=== PATIENT | female | born 1950 | race Caucasian/White ===

== ENCOUNTER 2020-07-08 16:26 | Emergency (ER) | payer MEDICARE, MEDICAID, SELFPAY ==
--- NOTE | ~2020-07-08 | XR_ITS ---
EXAMINATION: LEFT TIB-FIB, LEFT ANKLE, LEFT FOOT CLINICAL INFORMATION: Leg redness with question of osteomyelitis COMPARISON: None TECHNIQUE: 2 views tib-fib, 2 views ankle, 3 views foot FINDINGS: Some degenerative changes are present in the knee joint. In the proximal tibia laterally, there is a rather large area of which most likely represents osteopenia, but because of the history of because it is somewhat unusual MRI is recommended for further evaluation. The tibia and fibula otherwise appear normal. The ankle joint appears normal. Mild degenerative changes present at the DIP joints. There is some mild lateral subluxation at the PIP joint of the fifth toe. No fractures or bony destructive lesions are seen. XR/XR foot LT 2V IMPRESSION: Mild degenerative changes in the knee. Abnormal area of lucency seen in the proximal tibia as described above. MRI is recommended for further evaluation.
--- NOTE | ~2020-07-08 | XR_ITS ---
EXAMINATION: LEFT TIB-FIB, LEFT ANKLE, LEFT FOOT CLINICAL INFORMATION: Leg redness with question of osteomyelitis COMPARISON: None TECHNIQUE: 2 views tib-fib, 2 views ankle, 3 views foot FINDINGS: Some degenerative changes are present in the knee joint. In the proximal tibia laterally, there is a rather large area of which most likely represents osteopenia, but because of the history of because it is somewhat unusual MRI is recommended for further evaluation. The tibia and fibula otherwise appear normal. The ankle joint appears normal. Mild degenerative changes present at the DIP joints. There is some mild lateral subluxation at the PIP joint of the fifth toe. No fractures or bony destructive lesions are seen. XR/XR tibia fibula LT 2V IMPRESSION: Mild degenerative changes in the knee. Abnormal area of lucency seen in the proximal tibia as described above. MRI is recommended for further evaluation.
--- NOTE | ~2020-07-08 | US_ITS ---
EXAMINATION: US VENOUS ULTRASOUND WITH DOPPLER LOWER EXTREMITY, BILATERAL CLINICAL INFORMATION: Swelling. Edema COMPARISON: Doppler ultrasound left lower extremity 08/28/2018. TECHNIQUE: Ultrasound of the deep veins is performed from the hip to the calf with compression sonography and color and pulse Doppler assessment. Spectral analysis with color-flow imaging is performed. FINDINGS: RIGHT: There is normal venous compression and respiratory variation and augmented flow. The visualized common femoral vein, superficial femoral vein, profunda femoral vein, popliteal vein, and the trifurcation region shows no evidence of deep venous thrombosis. There is no significant popliteal fossa cyst. LEFT: There is normal venous compression and respiratory variation and augmented flow. The visualized common femoral vein, superficial femoral vein, profunda femoral vein, popliteal vein, and the trifurcation region shows no evidence of deep venous thrombosis. There is no significant popliteal fossa cyst. If the patient's symptoms persist, followup ultrasound in 5 days 7 days might be of value to exclude proximal propagation from a non-visualized calf vein. US/US venous duplex LE BI IMPRESSION: No DVT demonstrated in the bilateral lower extremity.
--- NOTE | ~2020-07-08 | XR_ITS ---
EXAMINATION: LEFT TIB-FIB, LEFT ANKLE, LEFT FOOT CLINICAL INFORMATION: Leg redness with question of osteomyelitis COMPARISON: None TECHNIQUE: 2 views tib-fib, 2 views ankle, 3 views foot FINDINGS: Some degenerative changes are present in the knee joint. In the proximal tibia laterally, there is a rather large area of which most likely represents osteopenia, but because of the history of because it is somewhat unusual MRI is recommended for further evaluation. The tibia and fibula otherwise appear normal. The ankle joint appears normal. Mild degenerative changes present at the DIP joints. There is some mild lateral subluxation at the PIP joint of the fifth toe. No fractures or bony destructive lesions are seen. XR/XR ankle LT min 3V IMPRESSION: Mild degenerative changes in the knee. Abnormal area of lucency seen in the proximal tibia as described above. MRI is recommended for further evaluation.
[2020-07-08 20:04] VITALS: BP 117/48; PULSE 79; RESP 18; TEMP 36.6; O2SAT 98; BMI 18.1
--- NOTE | 2020-07-08 20:54 | ECG_ITS ---
Test Reason : BILAT LOW LEG SWELLI Blood Pressure : / mmHG Vent. Rate : 076 BPM Atrial Rate : 076 BPM P-R Int : 154 ms QRS Dur : 060 ms QT Int : 362 ms P-R-T Axes : 056 077 062 degrees QTc Int : 407 ms Normal sinus rhythm Junctional ST depression, probably abnormal Abnormal ECG When compared with ECG of 23-AUG-2018 12:07, No significant change was found Referred By: Roberto Fernando Electronically Signed By:Reji Gamble
--- NOTE | 2020-07-08 21:06 | ED_ITS ---
HPI - Extremity Problem General Chief complaint: Extremity Problem Stated complaint: CELLULITIS? Time Seen by Provider: 07/08/20 21:11 Source: patient Mode of arrival: ambulatory Limitations: no limitations History of Present Illness HPI Narrative: Patient presents to the ED for evaluation of lower extremities. Patient states swelling of bilateral lower extremities with left leg slightly more swollen than right with redness for 1 month. Patient denies any chest pain or shortness of breath. Patient was sent by PCP to make sure this is no possibility of blood clot. Related Data Previous Rx's Medication Instructions Recorded cephalexin 500 mg PO QID #28 cap 07/09/20 doxycycline hyclate 100 mg PO BID #14 cap 07/09/20 Allergies Allergy/AdvReac Type Severity Reaction Status Date / Time shellfish derived Allergy Intermediate SWELLING Verified 07/08/20 20:54 [SHELLFISH DERIVED] hazelnut Allergy Abdominal Verified 07/08/20 20:02 Pain pecans Allergy Unknown Abdominal Uncoded 07/08/20 20:02 Pain walnuts Allergy Unknown Abdominal Uncoded 07/08/20 20:02 Pain Review of Systems Review of Systems: Yes all other systems are reviewed and are negative Constitutional: Constitutional: Reports as per HPI and Reports no additional constitutional complaints Eyes: Eyes: Reports as per HPI and Reports no additional eye complaints ENT: Reports system reviewed and no additional complaints, except as documented and Reports as per HPI Cardiovascular: Cardiovascular: Reports as per HPI and Reports no additional cardiovascular complaints Respiratory: Respiratory: Reports as per HPI and Reports no additional respiratory complaints Gastrointestinal: Gastrointestinal: Reports as per HPI and Reports no additional gastrointestinal complaints Genitourinary: Genitourinary: Reports no additional female genitourinary complaints and Reports as per HPI Musculoskeletal: Musculoskeletal: Reports no additional musculoskeletal complaints and Reports as per HPI Comments: Bilateral lower extremity swelling. Left leg redness Neurologic: Reports system reviewed and no additional complaints, except as documented and Reports as per HPI Psychiatric: Psychiatric: Reports no additional psychiatric complaints and Reports as per HPI PMF Past Medical History Medical History (Updated 07/09/20 @ 00:51 by ADNE Guzman) Patient denies medical problems Social History Social History Smoking Status: Never smoker Use of substances other than those prescribed or required for medical reasons: No Advance Directives: No Advance Directives Information Provided: No Physical Exam Vital Signs: Vital Signs: Last Vital Signs Temp 98.2 F 07/08/20 22:46 Pulse 79 07/09/20 00:00 Resp 18 07/09/20 00:00 BP 128/64 07/09/20 00:00 Pulse Ox 99 07/09/20 00:00 Body Mass Index 18.1 Const: General: cooperative, healthy appearing, comfortable, no acute distress, well developed, alert and awake Orientation/consciousness: patient oriented x3 HENMT: Head: Yes normal to inspection, Yes No palpable skull fracture present, Yes normocephalic, Yes atraumatic, No Bautista's sign, No contusion, No cranial bruits, No hematoma, No laceration, No occipital foramen tenderness, No palpable skull fracture, No raccoon eyes, No scalp lesion, No scalp tenderness and No Temporal artery tenderness present Eyes: General: appearance normal, both eyes and all related structures Neck: Neck: Yes normal visual inspection, Yes full ROM, Yes no lymphadenopathy, Yes no meningeal signs, Yes trachea midline, Yes supple and No tender Chest: Chest palpation & inspection: normal inspection of the chest and normal palpation of entire chest wall Resp: Effort & Inspection: normal respiratory effort and able to speak in complete sentences Auscultation: clear to auscultation bilaterally Cardio: Jugular venous distension: no JVD Heart sounds: S1 normal heart sound present and S2 normal heart sound present GI: Inspection: Yes normal to inspection and Yes abdominal wall ecchymosis : General: No CVA tenderness and Yes no CVA tenderness Back/Spine/Pelvis: Back: no CVA tenderness, No CVA tenderness and No back tenderness Skin: General skin exam: no rashes or lesions noted and elasticity normal Neuro: General: patient oriented x3, gait normal, no meningeal signs and CN's II-XI intact bilaterally Cranial nerves: Yes CN's II-XII intact bilaterally Extrem: Other: Bilateral lower extremities: Positive for bilateral pitting edema with venous stasis redness, although left lower extremity slightly more red ( lower tib/fib/ankle/foot) and swollen. Negative for any calf tenderness bilaterally. Pulses are intact in both feet. Negative for any ulcers or wounds. Psych: Appearance: grossly normal, well kempt and not disheveled Course Course Course Narrative: Differentials venous stasis. Will send patient ultrasound to rule out DVT. Will do labs to evaluate white count to see this actual worsening cellulitis. Patient denies any distress. Also will do x-ray of left lower extremity to rule out any osteomyelitis. Reevaluation(s) Reevaluation #1: Patient ultrasound negative for blood clot. Patient's troponin BNP negative. White blood cell count came back normal. Patient afebrile non tachy. History physical exam does not indicate DVT or CHF. X-ray negative for osteomyelitis. Lucency on x-ray read as reflected osteopenia. Patient is not febrile, tachycardic, nontoxic-appearing. History physical exam does not indicate osteomyelitis. Time: 00:30 MDM - Extremity (Nontraumatic) MDM Narrative Medical decision making narrative: Bilateral Venous stasis with stasis dermatitis and mild cellulitis of left lower extremity Lab Data Result diagrams: 07/08/20 22:57 07/08/20 23:25 Labs: Lab Results 07/08/20 07/08/20 07/08/20 Range/Units 22:57 22:57 22:57 WBC 5.9 (4.8-10.8) X10*3/uL RBC 4.11 L (4.20-5.50) X10*6/uL Hgb 12.1 (12.0-16.0) g/dl Hct 37.7 (37-47) % MCV 91.7 (80-98) fL MCH 29.4 (27.0-33.0) pg MCHC 32.1 (31.0-35.0) g/dl RDW 13.1 (11.0-16.0) % Plt Count 203 (160-400) X10*3/uL MPV 10.1 (9.4-12.3) fL Immature Gran % (Auto) 0.0 (0.0-0.4) % Neut % (Auto) 47.6 (45-73) % Lymph % (Auto) 33.6 (20-40) % [place] % (Auto) 10.3 (2-11) % Eos % (Auto) 8.3 H (0-4) % Baso % (Auto) 0.2 (0-2) % Lymph # (Auto) 2.0 (1.2-4.9) X10*3/uL [place] # (Auto) 0.6 (0.1-1.2) X10*3/uL Eos # (Auto) 0.5 H (0.0-0.4) X10*3/uL Baso # (Auto) 0.0 (0.0-0.2) X10*3/uL Abs Immat Gran (auto) 0.00 (0.00-0.03) X10*3/uL Absolute Neuts (auto) 2.8 (2.0-8.3) X10*3/uL Absolute Nucleated RBC 0.000 (0.0-0.012) X10*3/uL Nucleated RBC % (auto) 0.0 (0.0-0.2) /100WBC PT 12.9 (10.8-13.0) SEC INR 1.1 (0.9-1.1) APTT 39.2 H (24.1-38.0) SEC Sodium (135-145) mmol/L Potassium (3.3-5.1) mmol/L Chloride (96-108) mmol/L Carbon Dioxide (22-29) mmol/L Anion Gap (12-20) BUN (9-16) mg/dL Creatinine (0.5-1.4) mg/dL Estim Creat Clear Calc Estimated GFR Random Glucose (60-115) mg/dL Calcium (8.4-10.2) mg/dL Total Bilirubin (0.0-1.0) mg/dL AST (5-31) U/L ALT (0-31) U/L Alkaline Phosphatase (39-117) U/L Troponin I High Sens < 3.5 (<3.5-17.0) ng/L B-Natriuretic Peptide 41 (<100) pg/mL Total Protein (6.5-8.0) g/dL Albumin (3.5-5.0) g/dL 07/08/20 Range/Units 23:25 WBC (4.8-10.8) X10*3/uL RBC (4.20-5.50) X10*6/uL Hgb (12.0-16.0) g/dl Hct (37-47) % MCV (80-98) fL MCH (27.0-33.0) pg MCHC (31.0-35.0) g/dl RDW (11.0-16.0) % Plt Count (160-400) X10*3/uL MPV (9.4-12.3) fL Immature Gran % (Auto) (0.0-0.4) % Neut % (Auto) (45-73) % Lymph % (Auto) (20-40) % [place] % (Auto) (2-11) % Eos % (Auto) (0-4) % Baso % (Auto) (0-2) % Lymph # (Auto) (1.2-4.9) X10*3/uL [place] # (Auto) (0.1-1.2) X10*3/uL Eos # (Auto) (0.0-0.4) X10*3/uL Baso # (Auto) (0.0-0.2) X10*3/uL Abs Immat Gran (auto) (0.00-0.03) X10*3/uL Absolute Neuts (auto) (2.0-8.3) X10*3/uL Absolute Nucleated RBC (0.0-0.012) X10*3/uL Nucleated RBC % (auto) (0.0-0.2) /100WBC PT (10.8-13.0) SEC INR (0.9-1.1) APTT (24.1-38.0) SEC Sodium 142 (135-145) mmol/L Potassium 4.2 (3.3-5.1) mmol/L Chloride 107 (96-108) mmol/L Carbon Dioxide 28 (22-29) mmol/L Anion Gap 11 L (12-20) BUN 18 H (9-16) mg/dL Creatinine 0.79 (0.5-1.4) mg/dL Estim Creat Clear Calc 53.1 Estimated GFR > 60 Random Glucose 91 (60-115) mg/dL Calcium 8.8 (8.4-10.2) mg/dL Total Bilirubin 0.3 (0.0-1.0) mg/dL AST 20 (5-31) U/L ALT 16 (0-31) U/L Alkaline Phosphatase 44 (39-117) U/L Troponin I High Sens (<3.5-17.0) ng/L B-Natriuretic Peptide (<100) pg/mL Total Protein 6.4 L (6.5-8.0) g/dL Albumin 3.8 (3.5-5.0) g/dL ECG Data Interpretation: Normal sinus. Ventricular rate 76. Pr interval 154. QRS 60. QTC 407. Negative STEMI Discharge Plan Discharge Clinical Impression: Venous stasis Patient Disposition: Home, Self-Care Instructions: Cellulitis (ED), Stasis Dermatitis (ED), Venous Insufficiency (DC) Additional Instructions: Return to the ED for worsening pain, fever, chills, increased swelling, calf pain, chest pain, worsening redness, shortness of breath, or any other concerning symptoms. Ultrasound came back negative for DVT. BNP and troponin came back negative. EKG came back normal. X-ray negative for any fractures. Continue taking hydrocortisone steroid you were given by your PCP Prescriptions: New cephalexin 500 mg capsule 500 mg PO QID Qty: 28 RF: 0 doxycycline hyclate 100 mg capsule 100 mg PO BID Qty: 14 RF: 0 Interventions: ED Discharge Assessment Last Done: 07/09/20 00:52 Print Language: German
[2020-07-08 22:46] VITALS: BP 130/68; PULSE 79; RESP 18; TEMP 36.8; O2SAT 99
[2020-07-08 23:01] LABS: MANUAL DIFF FLAG NO
[2020-07-08 23:03] LABS: Basophils Percent Auto 0.2 % (0-2); Eosinophils Absolute Auto 0.5 X10*3/uL (0.0-0.4); Eosinophils Percent Auto 8.3 % (0-4); Hematocrit 37.7 % (37-47); Hemoglobin 12.1 g/dl (12.0-16.0); Lymphocytes Percent Auto 33.6 % (20-40); Mean Corpuscular HGB Conc 32.1 g/dl (31.0-35.0); Mean Corpuscular Hemoglobin 29.4 pg (27.0-33.0); Mean Corpuscular Volume 91.7 fL (80-98); Mean Platelet Volume 10.1 fL (9.4-12.3); Monocytes Absolute Auto 0.6 X10*3/uL (0.1-1.2); Monocytes Percent Auto 10.3 % (2-11); Neutrophils Absolute Auto 2.8 X10*3/uL (2.0-8.3); Neutrophils Percent Auto 47.6 % (45-73); Platelet Count 203 X10*3/uL (160-400); Red Blood Count 4.11 X10*6/uL (4.20-5.50); Red Cell Distribution Width 13.1 % (11.0-16.0); White Blood Count 5.9 X10*3/uL (4.8-10.8)
[2020-07-08 23:13] LABS: INTERNATIONAL NORM RATIO 1.1 (0.9-1.1); Prothrombin Time 12.9 SEC (10.8-13.0)
[2020-07-08 23:15] LABS: Partial Thromboplastin Time 39.2 SEC (24.1-38.0)
[2020-07-08 23:28] LABS: B Type Natriuretic Peptide 41 pg/mL (<100); Troponin-I High Sensitivity < 3.5 ng/L (<3.5-17.0)
[2020-07-09] VITALS: BP 128/64; PULSE 79; RESP 18; O2SAT 99
[2020-07-09 00:07] LABS: Alanine Aminotransferase 16 U/L (0-31); Albumin Level 3.8 g/dL (3.5-5.0); Alkaline Phosphatase 44 U/L (39-117); Anion Gap 11 (12-20); Aspartate Amino Transferase 20 U/L (5-31); Bilirubin Total 0.3 mg/dL (0.0-1.0); Blood Urea Nitrogen 18 mg/dL (9-16); Calcium 8.8 mg/dL (8.4-10.2); Carbon Dioxide 28 mmol/L (22-29); Chloride 107 mmol/L (96-108); Creatinine Clr Calc Pharmacy 53.1; Estimated Glomerular Filt Rate > 60; Glucose Random 91 mg/dL (60-115); Potassium 4.2 mmol/L (3.3-5.1); Sodium 142 mmol/L (135-145); Total Protein 6.4 g/dL (6.5-8.0)
== END 2020-07-09 00:52 | disposition home or self-care (01) ==
PROVIDERS: Physician Assistant; Emergency Provider Emergency Medicine
DX: I83.12 Varicose veins of left lower extremity with inflammation (principal); I83.11 Varicose veins of right lower extremity with inflammation; R60.0 Localized edema; L03.116 Cellulitis of left lower limb
CPT/HCPCS: 36415; 73590; 73610; 73620; 80053; 83880; 84484; 85025; 85610; 85730; 93005; 93970; 99284

== ENCOUNTER 2020-08-19 11:58 | Outpatient (REF) | payer MEDICARE, MEDICAID, SELFPAY ==
--- NOTE | ~2020-08-19 | XR_ITS ---
EXAMINATION: XR CHEST CLINICAL INFORMATION: Cough, edema, dry crackles at the right base. Rule out fibrosis. COMPARISON: None TECHNIQUE: 2 views of the chest were obtained. FINDINGS: The lungs are well expanded. Slight elevation of the right hemidiaphragm with tenting. Mild reticulation is noted along the periphery of the right lung. Minimal patchy opacity. No pleural effusion or pneumothorax. The cardiomediastinal silhouette is within normal limits. Right upper quadrant surgical clips. XR/XR chest 2V IMPRESSION: Tenting of the right hemidiaphragm with patchy basilar opacity could represent atelectasis or pneumonia. There is mild reticulation of the periphery of the right lung which is nonspecific. There may be mild fibrosis consider CT evaluation if clinically indicated.
[2020-08-19 13:51] LABS: Alanine Aminotransferase 16 U/L (0-31); Albumin Level 4.1 g/dL (3.5-5.0); Alkaline Phosphatase 49 U/L (39-117); Anion Gap 11 (12-20); Aspartate Amino Transferase 22 U/L (5-31); Bilirubin Total 0.5 mg/dL (0.0-1.0); Blood Urea Nitrogen 14 mg/dL (9-16); C Reactive Protein 0.23 mg/dL (< or = 0.50); Calcium 8.8 mg/dL (8.4-10.2); Carbon Dioxide 30 mmol/L (22-29); Chloride 104 mmol/L (96-108); Estimated Glomerular Filt Rate > 60; Glucose Random 83 mg/dL (60-115); Potassium 3.9 mmol/L (3.3-5.1); Sodium 141 mmol/L (135-145); Total Protein 6.8 g/dL (6.5-8.0)
[2020-08-19 14:13] LABS: Free T4 (Free Thyroxine) 0.91 ng/dL (0.71-1.85); Thyroid Stimulating Hormone 2.38 uIU/mL (0.32-4.0)
== END 2020-08-19 11:59 | disposition home or self-care (01) ==
LOC: HO.LAB 11:58
PROVIDERS: PCP Internal Medicine; Visit Provider Internal Medicine
DX: R60.9 Edema, unspecified (principal); R05 Cough
CPT/HCPCS: 36415; 71046; 80053; 84439; 84443; 86140

== ENCOUNTER → 2020-09-07 10:32 | Outpatient (REF) | payer MEDICARE, MEDICAID, SELFPAY ==
--- NOTE | 2020-09-07 10:30 | CA_ITS ---
Transthoracic Echocardiogram Patient (Last, First, Middle): Laure Burrows E Gender: Female Date of : 1950 Age: 69 Procedure Date: 09/07/2020 Procedure Type: Transthoracic Echocardiogram Location: OP Height: 165.1 cm Weight: 45.81 kg BSA: 1.48 m2 Heart Rate: bpm BP: 124 / 60 mmHg Pharmacist Aide: DSDwaine Referring MD: Kit Huff MD Symptoms: R60.0 LOCALIZED EDEMA Study Quality: Good ECG Rhythm: Sinus Conclusions: - The left ventricular systolic function is normal. The visually estimated ejection fraction is between 65-70%. - No obvious valvular pathology seen on this study. - Small plaque is seen in the sino tubular ridge. Findings Left Ventricle Normal left ventricular cavity size. There is normal left ventricular wall thickness. The left ventricular systolic function is normal. The visually estimated ejection fraction is between 65-70%. The calculated ejection fraction is 67% by biplane method. There is no evidence of regional wall motion abnormalities. Diastolic function is normal for age. Right Ventricle Normal right ventricular cavity size and systolic function. Atria The left atrium is normal in size. The right atrium is normal in size. Aortic Valve The aortic valve structure and function is likely normal. There is no aortic valve stenosis. There is no aortic valve regurgitation. Mitral Valve The mitral valve appears normal. There is no mitral valve regurgitation. There is no mitral valve stenosis. Pulmonic Valve The pulmonic valve was not well visualized. Tricuspid Valve The tricuspid valve was not well visualized. There is trace tricuspid valve regurgitation. The pulmonary artery systolic pressure is normal. Great Vessels The asc aorta is normal in size. Small plaque is seen in the sino tubular ridge. Venous The inferior vena cava is normal in size and collapses greater than 50% with inspiration. Pericardium/Pleural There is no evidence of pericardial effusion. Prior Study Comparison No prior study available for comparison. Recommendations, Care & Conclusions No obvious valvular pathology seen on this study. Measurements 2D Linear Measurements IVSd: 0.71 0.6-0.9/0.6-1.0 cm LVIDd: 4.20 3.9-5.3/4.2-5.9 cm LVIDd Index: 2.84 2.4-3.2/2.2-3.1 cm/m2 LVIDs: 2.22 2.0-3.6 cm LVPWd: 0.65 0.7-1.1 cm Ao Root: 3.00 2.1-3.5 cm LA Diam: 2.90 2.7-3.8/3.0-4.0 cm LAIDs Index: 1.96 1.5-2.3 cm/m2 LV Mass: 101.61 67-162/88-224 g LV Mass Index: 68.65 43-95/49-115 g/m2 LVOT Diam: 1.90 3.0+(-)1.3 cm 2D Systolic Function EF 4C: 61.60 >55% EF 2C: 72.10 >55% EF BiP: 67.40 >55% Mitral Valve MV Pk E: 0.63 MV PK A: 0.52 MV Decel Time: 158.00 E/A: 1.20 E'Lateral: 11.30 E'Medial: 11.30 E/E' Med: 5.60 E/E' Lat: 5.60 PHT: 46.00 MVA PHT: 4.78 Decel Nobles: 3.98 Aortic Valve AoV Pk Larry: 1.32 AoV Pk Grad: 7.00 LVOT LVOT Pk Larry: 1.14 LVOT Mn Larry: 0.73 LVOT VTI: 0.22 LVOT Pk Grad: 5.00 LVOT Mn Grad: 3.00 LVOT Diam: 1.90 LVOT Area: 2.84 Diastolic Function MV Pk E: 0.63 MV Pk A: 0.52 E/A: 1.20 E'Medial: 11.30 E/E' Med: 5.60 E' Laterial: 11.30 E/E' Lat: 5.60 Tricuspid Valve TR Pk Larry: 2.28 TR Pk Grad: 21.00 RA Press: 3.00 RVSP: 24.00 Great Vessels Aorta Ao Root-2D: 3.00 2.0-3.7 cm Ao Asc: 3.10 2.1-3.4 cm Updated in Other Vendor System with Status of Final Tomas Dietz MD electronically signed on 09/07/2020 12:33:19 PM with status of Final
== END ==
LOC: HO.CARD 10:32
PROVIDERS: Visit Provider Internal Medicine
DX: R60.0 Localized edema (principal)
CPT/HCPCS: 93306

== ENCOUNTER 2020-10-01 09:36 | Outpatient (REF) | payer MEDICARE, MEDICAID, SELFPAY ==
--- NOTE | ~2020-10-01 | CT_ITS ---
EXAMINATION: CT CHEST WITHOUT CONTRAST CLINICAL INFORMATION: Dry crackles. Tenting right hemidiaphragm. COMPARISON: Previous chest x-ray 08/19/2020 TECHNIQUE: Multidetector volumetric CT imaging of the chest was done. Axial MIP volume rendering provided. Sagittal and coronal reformatted images were obtained. This CT examination was performed using dose optimization techniques as appropriate, variously including the following: *Automated exposure control *Adjustment of mA and/or kV according to patient size (this includes techniques or standardized protocols for targeted exams where dose is matched to indication/reason for exam; i.e. 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 There is a 5 mm right lower lobe nodule axial image 328 series 5. There are increased peripheral interstitial markings with increased peripheral reticulation and traction bronchiolectasis and is suggestive of mild interstitial lung disease greatest at the right lung base. MEDIASTINUM: The esophagus is dilated and filled with air down to the GE junction. Possible achalasia should be considered. The mediastinum is otherwise normal. The mediastinum is normal. PLEURA: There is no pleural effusion. No pleural mass or thickening. AXILLA: No lymphadenopathy. UPPER ABDOMEN: The gallbladder. There is dampened removed. OSSEOUS STRUCTURES: There are degenerative changes of the spine. CT/CT chest wo con IMPRESSION: Biapical pleural parenchymal scarring. Increased interstitial markings suggestive of interstitial lung disease. 5 mm right lower lobe nodule. Chest CT follow-up in one year recommended. Dilated air-filled esophagus down to the GE junction. Possible achalasia should be considered.
== END 2020-10-01 09:37 | disposition home or self-care (01) ==
LOC: HO.CT 09:36
PROVIDERS: PCP Internal Medicine; Visit Provider Internal Medicine
DX: R09.89 Other specified symptoms and signs involving the circulatory and respiratory systems (principal)
CPT/HCPCS: 71250

== ENCOUNTER → 2020-10-21 10:41 | Outpatient (BNVA) | payer MEDICARE, MEDICAID, SELFPAY | PROVIDERS: PCP Internal Medicine; Visit Provider Internal Medicine | DX: J84.10 Pulmonary fibrosis, unspecified (principal); I87.303 Chronic venous hypertension (idiopathic) without complications of bilateral lower extremity | CPT/HCPCS: 99202 ==

== ENCOUNTER 2020-11-19 10:50 | Outpatient (REF) | payer MEDICARE, MEDICAID, SELFPAY ==
--- NOTE | 2020-11-19 15:34 | PFT_ITS ---
This patient came for pulmonary function test. However, with repeated events, she was not able to perform adequate maneuvers. So, no pulmonary function test report is generated. MD NIKHIL Pike/KEILY / [phone]
== END 2020-11-19 10:51 | disposition home or self-care (01) ==
LOC: HO.RESP 10:50
PROVIDERS: PCP Internal Medicine; Visit Provider Internal Medicine
DX: Z13.89 Encounter for screening for other disorder (principal)

== ENCOUNTER → 2020-12-02 10:44 | Outpatient (BNVA) | payer MEDICARE, MEDICAID, SELFPAY | PROVIDERS: PCP Internal Medicine; Visit Provider Internal Medicine | DX: J84.10 Pulmonary fibrosis, unspecified (principal); I87.303 Chronic venous hypertension (idiopathic) without complications of bilateral lower extremity; F41.9 Anxiety disorder, unspecified; Z91.018 Allergy to other foods; Z91.013 Allergy to seafood; Z79.899 Other long term (current) drug therapy | CPT/HCPCS: 99212 ==

== ENCOUNTER 2021-03-30 10:46 | Outpatient (REF) | payer MEDICARE, MEDICAID, SELFPAY ==
--- NOTE | ~2021-03-30 | CT_ITS ---
EXAMINATION: CT CHEST WITHOUT CONTRAST CLINICAL INFORMATION: Pulmonary fibrosis COMPARISON: Previous chest CT September 2020 TECHNIQUE: Multidetector volumetric CT imaging of the chest was done. Axial MIP volume rendering provided. Sagittal and coronal reformatted images were obtained. This CT examination was performed using dose optimization techniques as appropriate, variously including the following: *Automated exposure control *Adjustment of mA and/or kV according to patient size (this includes techniques or standardized protocols for targeted exams where dose is matched to indication/reason for exam; i.e. 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 There is biapical pleural and parenchymal scarring, right greater than left. Appears unchanged. There are increased peripheral interstitial markings with increased peripheral reticulation and traction bronchiolectasis and some increased parenchymal peripheral attenuation, particularly along the major fissures. This is greatest in the right lower lobe and does not appear appreciably changed. There is a 5 x 7 mm peripheral or subpleural left lower lobe nodule that is a new or more prominent axial image 139 series 5. This may represent a subpleural lymph node. There is a 3 mm right pulmonary nodule along the junction of the major and minor fissure axial image 97 series 5 also probably representing a subpleural lymph node that is able. There is a 3 x 5 mm peripheral or subpleural right lower lobe nodule along the major fissure axial image 104 series 5 that probably represents a subpleural lymph node. This is stable. The previously identified 5 mm right lower lobe nodule axial image 326 series 5 on September 2020 exam is no longer seen. MEDIASTINUM: The esophagus is dilated and air-filled again questionable for a achalasia. The mediastinum is otherwise normal. PLEURA: There is no pleural effusion. No pleural mass or thickening. AXILLA: No lymphadenopathy. UPPER ABDOMEN: The gallbladder has been removed. OSSEOUS STRUCTURES: There are degenerative changes of the spine. CT/CT chest wo con IMPRESSION: Limited exam due to respiratory motion artifact. Interstitial lung disease similar to previous exam. Bilateral peripheral or subpleural pulmonary nodules probably representing subpleural lymph nodes. The previously identified 5 mm right lower lobe nodule on September 2020 exam is no longer seen. Dilated air-filled thoracic esophagus again questionable for achalasia.
== END 2021-03-30 10:47 | disposition home or self-care (01) ==
LOC: HO.CT 10:46
PROVIDERS: PCP Internal Medicine; Visit Provider Internal Medicine
DX: J84.10 Pulmonary fibrosis, unspecified (principal)
CPT/HCPCS: 71250

== ENCOUNTER → 2021-04-07 09:51 | Outpatient (BNVA) | payer MEDICARE, MEDICAID, SELFPAY | PROVIDERS: PCP Internal Medicine; Visit Provider Internal Medicine | DX: J84.10 Pulmonary fibrosis, unspecified (principal); K22.0 Achalasia of cardia; F41.9 Anxiety disorder, unspecified | CPT/HCPCS: 99212 ==

== ENCOUNTER 2021-10-13 12:28 | Outpatient (REF) | payer MEDICARE, MEDICAID, SELFPAY ==
--- NOTE | ~2021-10-13 | MM_ITS ---
EXAMINATION: MM DIAGNOSTIC DIGITAL BREAST TOMOSYNTHESIS, BILATERAL US DIAGNOSTIC ULTRASOUND BREAST, LEFT CLINICAL INFORMATION: Left breast lump anterior medial breast. Left breast pain. Family history breast cancer, 2 sisters. The lifetime risk of breast cancer based on the Tyrer-Cuzick Model is 12%. COMPARISON: Mammography: 07/25/2018, 08/20/2015, 06/16/2009 TECHNIQUE: Digital breast tomosynthesis is performed in both the craniocaudal and mediolateral oblique views along with computer-aided detection (CAD). Synthesized 2D images are generated from the tomosynthesis. Additional bilateral magnification views are obtained in the following projections: Right CC, right ML, left exaggerated CC x2, left MLO x2. Ultrasound left breast is targeted to the area of clinical concern lower and inner quadrant. Patient is able to point to area of concern at time of imaging. Grayscale imaging and color Doppler are performed without and with harmonics. FINDINGS: The breasts are extremely dense, which lowers the sensitivity of mammography (ACR BI-RADS breast composition Category d). Parenchymal tissue pattern is similar to prior studies and there is no developing density or interval mass or architectural abnormality. The axilla and skin contours are unremarkable. There are numerous bilateral coarse and small round and some punctate calcifications. The right breast has numerous calcifications corresponding to the areola dermis similar to remote prior exam 2009. No abnormal calcifications on the right. Left breast has multiple coarse round and oval calcifications and some rim calcifications. There are also fine punctate round calcifications), central, inner lower left breast, likely similar to prior exam although better appreciated on magnification views. These will be reassessed again in 6 months to include magnification views left breast. Ultrasound left breast demonstrates benign coarse calcification corresponding to palpable concern medial breast. There is dense parenchymal pattern with no focal cystic or solid mass. Results are discussed with the patient at time of visit. MM/MM tomosynthesis diagnostic BI IMPRESSION: Left: -Palpable concern medial left breast corresponds to a benign coarse calcification. -Probable benign punctate calcifications upper and lower left breast, better appreciated with magnification views, likely chronic. Right: -No significant change from prior studies. ASSESSMENT: BI-RADS 3: Probably Benign RECOMMENDATION: Diagnostic left mammography with additional magnification views in 6 months. This patient's information was entered into a reminder system with a target due date for their next mammogram.
== END 2021-10-13 12:29 | disposition home or self-care (01) ==
LOC: HO.MAMMO 12:28
PROVIDERS: Visit Provider Internal Medicine
DX: N64.4 Mastodynia (principal)
CPT/HCPCS: 76642; 77062; 77066

== ENCOUNTER → 2021-10-20 13:13 | Outpatient (BNVA) | payer MEDICARE, MEDICAID, SELFPAY | PROVIDERS: PCP Internal Medicine; Visit Provider Internal Medicine | DX: J84.10 Pulmonary fibrosis, unspecified (principal); I87.303 Chronic venous hypertension (idiopathic) without complications of bilateral lower extremity; F41.9 Anxiety disorder, unspecified; K22.0 Achalasia of cardia | CPT/HCPCS: 99212 ==

== ENCOUNTER 2023-11-19 15:46 | Outpatient (AMB) | payer MEDICARE, MEDICAID, SELFPAY ==
--- NOTE | 2023-11-19 15:52 | A.OFFVIS_ITS ---
Vital Signs 11/19/23 15:53 Height 5 ft 5 in Weight 105 lb 0.82 oz BMI 17.5 BP 110/60 Blood Pressure Location Lt brachial Position Sitting Pulse 87 Pulse Source Pulse Oximeter Pulse Oximetry (%) 98 Oxygen Delivery Method Room Air Intake Visit Reasons: COPD Intake Note: pt is here for follow up and states she does have a coughing and choking at the same time. Split Leather Department Supervisor Required: No Allergies shellfish derived [SHELLFISH DERIVED] Allergy (Intermediate, Verified 11/19/23 16:27) SWELLING hazelnut Allergy (Unknown, Verified 11/19/23 16:27) Abdominal Pain pecans Allergy (Unknown, Uncoded 11/19/23 16:27) Abdominal Pain walnuts Allergy (Unknown, Uncoded 11/19/23 16:27) Abdominal Pain Medication List - Last Reconciled 11/19/23 by Brigida Berry MD triamcinolone acetonide 0.1% appl topical PRN Do you need a note to return to daycare/school/sports/work: No HPI HPI COPD: Details: MARCO IS 73 YEARS OLD FEMALE, SHE HAS COME TODAY JUST FOR CHECKUP. SHE DID NOT COME LAST YEAR FOR HER YEARLY CHECKUP. DOES NOT HAVE ANY NEW SYMPTOMS, BUT HAS CHRONIC SYMPTOM OF INTERMITTENT BOUTS OF COUGH WITH CONGESTED FEELING, HER SISTER WHO LIVES IN [place], BROUGHT HER TO THE OFFICE TODAY., AND THINKS THAT MARCO HAS MILD INTERMITTENT BOUTS OF ALLERGIES. MARCO SAY IS THAT SHE FEELS HAVING SOME MUCUS AND THEN COUGHS UP AND THEN SHE FEELS IF SOMETHING IS CLOSING DOWN IN THE LUNGS. SHE HAS NEVER REQUIRED TO USE ANY INHALER. HER SYMPTOMS DO NOT PERSIST. DURING HER PAST VISITS SHE HAS EXPRESSED A FEELING OF FOOD GETTING STUCK. THERE IS AN ONGOING CLINICAL DIAGNOSIS OF ACHALASIA OF THE ESOPHAGUS. SHE DENIES HAVING HAD ANY EPISODES OF CHOKING ON FOOD. MARCO IS QUITE ANXIOUS AND TALKS FAST. PAST CT SCANS OF THE CHEST, LAST BEING IN 2020, HAVE SHOWN CHRONIC FIBROTIC CHANGES IN BY APICAL AREAS AND INCREASED PERIPHERAL INTERSTITIAL MARKINGS WITH MINIMAL DEGREE OF BRONCHIECTASIS. [facility] Medical History Achalasia, esophageal Anxiety Stasis edema of both lower extremities Pulmonary fibrosis Patient denies medical problems Social History Patient Tobacco Use Status: Never used Tobacco Review of Systems Const All systems reviewed & are unremarkable except as noted in HPI and below Eyes Reports no additional complaints ENT Reports no additional complaints and Reports dysphagia (Occasional episodes of choking on solid food) Card Denies chest pain, Denies irregular heart rhythm and Reports dyspnea on exertion (mild) Resp Reports as per HPI and Reports dyspnea on exertion (mild) GI Reports dysphagia (Occasional episodes of choking on solid food) Reports no additional complaints Musc Reports no additional complaints Skin/Breast Reports system reviewed and no additional complaints, except as documented Neuro Reports no additional complaints Psych Reports anxiety Physical Exam Vital Signs: Last Vital Signs Pulse 87 11/19/23 15:53 BP 110/60 11/19/23 15:53 Pulse Ox 98 11/19/23 15:53 Oxygen Delivery Method Room Air 11/19/23 15:53 BMI result Body Mass Index 17.5 Const General: comfortable, no acute distress, alert and awake Orientation/consciousness: patient oriented x3 HEENT Head: Yes normal to inspection General nose exam: No nasal polyps present and No nasal discharge present Face and sinus: Yes sinuses nontender Mouth: oropharynx normal Throat: Yes posterior oropharynx normal Eyes General: appearance normal, both eyes and all related structures Neck Neck: Yes normal visual inspection, Yes no lymphadenopathy, Yes trachea midline and Yes no JVD Thyroid: Thyroid normal Chest Chest palpation & inspection: normal inspection of the chest, normal palpation of entire chest wall and no tenderness Resp Other: Percussion note is hyper-resonant,. Breath sounds are distant with slight prolongation of the expiratory phase. A few inspiratory crackles heard over the back of the right upper lobe and also over the right base. no wheezes are heard . Cardio Palpation: normal PMI Rate: regular rate Rhythm: regular rhythm Heart sounds: no gallops and no murmurs GI Palpation (GI): Soft to palpation, nontender, No hepatosplenomegaly present and no masses Auscultation: normal bowel sounds Back/Spine/Pelvis Thoracic/Lumbar Spine: thoracic and lumbar spine normal to inspection Skin General skin exam: no rashes or lesions noted Neuro General: patient oriented x3 and no focal motor deficits Cranial nerves: Yes CN's II-XII intact bilaterally Extrem General: Yes normal to inspection, Yes no calf tenderness and Yes edema (mild of legs ,stasis type ) Psych Appearance: grossly normal Speech and movement: Normal speech and movement present Affect: Anxious affect present Results Reviewed Results Reviewed: I HAVE REVIEWED THE FINDINGS OF HER PREVIOUS CT SCANS OF THE CHEST. Assessment & Plan Assessment & Plan (1) Anxiety: Comment: She just has an Anxious personality , but is very pleasant . Code(s): F41.9 - Anxiety disorder, unspecified Category: Medical Plan: SHE NEEDS LOT OF REASSURANCE. I HAVE DISCUSSED IN DETAIL WITH THE PATIENT AND HER SISTER, THAT THERE IS NOTHING. ACUTE AT THIS TIME (2) Pulmonary fibrosis: Comment: Localized fibrotic changes most predominantly in right lung apical area, And also in right lung base. ETIOLOGY :Possible recurrent infections in younger age, and possible micro aspirations due to achalasia of the esophagus. The CT scan has shown dilated esophagus , suggesting possible achalasia . Clinically she is not symptomatic , except for mild intermittent cough. Code(s): J84.10 - Pulmonary fibrosis, unspecified Category: Medical Plan: Had a good, detailed conversation. Patient reassured. Advise that she does not need any medication at this time. (3) Achalasia, esophageal: Comment: Patient has history of choking on foods off and on. Radiologic evidence of dilatation of the esophagus, suggesting achalasia. Code(s): K22.0 - Achalasia of cardia Category: Medical Plan: Patient and her sister are made aware of this. Aspiration precautions are explained. Coding Level of Care Code Est Pt Level 3 (56557) Diagnoses Anxiety F41.9 Pulmonary fibrosis J84.10 Achalasia, esophageal K22.0
[2023-11-19 15:53] VITALS: BP 110/60; PULSE 87; O2SAT 98; BMI 17.5
== END 2023-11-19 16:19 | disposition home or self-care (01) ==
PROVIDERS: PCP Internal Medicine; Visit Provider Internal Medicine
DX: F41.9 Anxiety disorder, unspecified (principal); J84.10 Pulmonary fibrosis, unspecified; K22.0 Achalasia of cardia
CPT/HCPCS: 99213

== ENCOUNTER → 2023-11-19 15:46 | Outpatient (BNVA) | payer MEDICARE, MEDICAID, SELFPAY | PROVIDERS: PCP Internal Medicine; Visit Provider Internal Medicine | DX: J44.9 Chronic obstructive pulmonary disease, unspecified (principal); J84.10 Pulmonary fibrosis, unspecified; K22.0 Achalasia of cardia; F41.9 Anxiety disorder, unspecified | CPT/HCPCS: 99212 ==

== ENCOUNTER 2024-07-16 11:43 | Outpatient (REF) | payer MEDICARE, MEDICAID, SELFPAY ==
--- OUTSIDE RECORDS SUMMARY | 2024-07-16 14:46 | XMS_ITS | Data Portability ---
Author Organization [facility] Address [address] [place] [address] Assessment No assessment recorded. Plan of Treatment Reminders Order Date Submit Date Provider Last Modified By Organization Details Last Modified Time Details Appointments None record ed. Lab None record ed. Referral None record ed. Procedures None record ed. Surgeries None record ed. Imaging None record ed. Medication Orders None record ed. Patient TargetsNo targets recorded. Patient Instructions Encounter Date Encounter Id Patient Instructions Last Modified By Organization Details Last Modified Time 08/21/[id number] farsightedness (hyperopia): care instructions Not available 08/21/2018 15:55:52 learning about vitreous detachment Not available 08/21/2018 15:55:52 Advised patient to monitor and assess vision of each eye individually, visual function overall, for impairment in activities of daily living such as reading, driving, television, and glare issues such as driving at night. If significant difficulty or noticeable change, please contact us for further evaluation and treatment. Reviewed signs and symptoms of retinal detachment, changes in peripheral vision, increase in flashes/floaters and or overall vision decline. Return immediately to office/or call. Advised and reassured patient of early findings of EPIRETINAL MEMBRANE. with antioxidants. Occasionally monitor near vision with correction and Amsler grid. {{Amsler grid and AAO given}}. {{Discussed smoking cessation due to evidence link to AMD}}. Call if any changes in vision noted. Not available 08/21/2018 15:26:31 Reason for Referral None Reported. 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 Medical Equipment None Reported. Allergies Allergen ID Allergen Name Allergen Category Reaction Reaction Severity Criticality Documentation Date Start Date Code Code System Note Provider Name and Address Organization Details Recorded Time 96368 shellfish derived food,medi cation Not available Not available Not available 08/21/2018 09497 UNK [facility] 9 14:47:55 Medications Name Sig Start Date Stop Date Status Note LastModified by Organization Details LastModified Time Boostrix Tdap 2.5 Lf unit-8 mcg-5 Lf/0.5 mL intramuscular syringe ADM 0.5ML IM UTD 08/21 completed Not Available Not Available Not Available Prevnar 13 (PF) 0.5 mL intramuscular syringe ADM 0.5ML IM UTD 08/21 completed Not Available Not Available Not Available Fluzone High-Dose (PF) 180 mcg/0.5 mL intramuscular syringe ADM 0.5ML IM UTD 08/21 completed Not Available Not Available Not Available Vitals None Recorded Social History Question Answer Notes LastModified by Organizat ion Details LastModified Time Tobacco Smoking Status Never Smoker [facility] 08/21/2018 14:52:57 What Is Your Level Of Alcohol Consumption? None Information not available 08/21/2018 What Was The Date Of Your Most Recent Tobacco Screening? 08/21/2018 Information n ot available 12/12/2018 Sex: Unknown Functional Status None recorded. Mental Status None recorded. Family History Relationship Description Onset Age of this Age Resolved Age Notes LastModified by Organization Details LastModified Time Father Degenerative disorder of macula Not available 08/21 14:49:04 Mother History of glaucoma Not available 08/21 14:49:15 Sister Degenerative disorder of macula Not available 08/21 15:19:12 Medical History Condition Response Are you being treated for DIABETES ? N Are you being treated for HIGH CHOLESTRO L? N Are you being treated for PROSTATE PROBL EMS? N Have you had previous injections for ret inal problems? N Are you being treated for THYROID DISEAS E ? N Have you ever been treated for ulcers or aerospace engineer officer armament eye infections? N Are you being treated for HYPERTENSION? N Have you ever had eye surger y of any kind before (including corrective laser surgery)? N Have you ever been treated for lazy ey e? N Are you being treated for RESPIRATORY DI SEASE? N Are you being treated for HEART DISEASE? N Have you ever worn contact lenses? N Have you ever been treated for Shingles on or near your eyes or face? N Have you had or have you ever been treat ed for glaucoma? N Gynecological HistoryNo gynecological history recorded. Obstetrics History GPAL:G 0 P 0 0 0 0 Past Encounters Encounter ID Performer Location Encounter Start Date Encounter Closed Date Diagnosis/Indication Diagnosis SNOMED-CT Code Diagnosis ICD10 Code Diagnosis Note [id number] Gabriele Oscar MD [address] [address] 08/21/2018 14:03:06 08/21/2018 15:32:00 Cortical senile cataract 91314835 H25.013 Posterior vitreous detachment 993771420 H43.813 Epiretinal membrane 3676 73323 H35.371 Blepharitis 66626238 H01 .001 H01.002 H01.004 H01.005 Hypermetropia 58512965 H 52.03 Health Concerns Section Related Observation LastModified by Organization Detai ls LastModified Time None Recorded Concern Status LastModified by Organization Details LastModified Time None Recorded Advance Directives Directive None Recorded Payers Encounter Date Sequence Insurance Name Policy Number Policy Price Covered Member ID Price Member ID Guarantor Name 08/21/2018 1 MEDICARE [place]: [employer] Laure Burrows [id number] Laure Burrows 08/21/2018 2 MED[place]: [facility] Laure Burrows [id number] Laure Adkinsraissa Notes Date Note Type Note Provider Name and Address Organization Details Recorded Time 08/21/2018 text/html Blurred VisionReported bypatient.Context:no ticed a change in vision Location:bilateral (eyes) Modifying factors:blurred vision with glasses;difficulty readingNotes:family hx of glaucoma and amd Scribed to CR by KATYA Oscar MD [address] [place] [address] 5, [place], [address], [facility] 08/21/2018 15:55:55 OBGyn Episode No OBEpisode recorded.
== END 2024-07-16 11:44 | disposition home or self-care (01) ==
LOC: HO.MAMMO 11:43
PROVIDERS: Visit Provider Internal Medicine
DX: Z13.89 Encounter for screening for other disorder (principal)

== ENCOUNTER 2024-08-12 08:28 | Outpatient (REF) | payer MEDICARE, MEDICAID, SELFPAY ==
--- NOTE | ~2024-08-12 | MM_ITS ---
EXAMINATION: MM DIAGNOSTIC DIGITAL BREAST TOMOSYNTHESIS, BILATERAL CLINICAL INFORMATION: Left breast palpable lump lower inner breast. COMPARISON: Mammography: Comparison is made with relevant prior exams. TECHNIQUE: Digital breast mammography with tomosynthesis is performed in both the craniocaudal and mediolateral oblique views along with computer-aided detection (CAD). FINDINGS: The breasts are extremely dense, which lowers the sensitivity of mammography (ACR BI-RADS breast composition Category d). Bilateral benign calcifications again seen not significantly changed from priors. BB palpable marker in the lower inner breast with without underlying abnormality. No suspicious masses calcifications or other abnormal findings. Targeted color Doppler ultrasound scanning from 4- 8:00 in the area of the patient's palpable lump demonstrates multiple calcifications which are benign on mammography and normal fibronodular breast tissue. There is no suspicious sonographic abnormality. Results are provided to the patient at time of visit by the technologist. MM/MM tomosynthesis diagnostic BI IMPRESSION: No mammographic or sonographic abnormality to account for the patient's left breast palpable lump. Recommend clinical evaluation and follow-up. ASSESSMENT: BI-RADS BI-RADS 2 - Benign Findings RECOMMENDATION: 1 year F/U This patient's information was entered into a reminder system with a target due date for their next mammogram. Electronically signed by: Kika Galeana DO 08/12/2024 09:37 AM EDT
--- OUTSIDE RECORDS SUMMARY | 2024-08-12 09:04 | XMS_ITS | Data Portability ---
Author Organization [facility] Address [address] [place] [phone] Assessment No assessment recorded. Plan of Treatment [...] Recorded Time No current problems or disability 839345747 Active [facility] 9 14:48:49 Epiretinal membrane 647623848 Active 2018 [facility] 9 15:21:16 Posterior vitreous detachment 929300358 Active 2018 [place] [facility] 9 15:21:25 Cortical senile cataract 22846485 Active 2018 [place] [facility] 9 15:21:27 Blepharitis 75227318 Active 2018 [place] [facility] 9 15:21:37 Hypermetropia 28878433 Active 2018 [place] [facility] [facility] 9 15:23:49 Problem Notes None recorded. Medical Equipment None Reported. Allergies Allergen ID Allergen Name Allergen Category Reaction Reaction Severity Criticality Documentation Date Start Date Code Code System Note Provider Name and Address Organization Details Recorded Time 55380 shellfish derived food,medi cation Not available Not available Not available 08/21/2018 66790 UNK [place] [facility] 9 14:47:55 Medications Name Sig Start [...] LastModified Time Tobacco Smoking Status Never Smoker [place] [facility] [facility] 08/21/2018 14:52:57 What Is Your Level [...] Condition Response Are you being treated for THYROID DISEAS E ? N Are you being treated for RESPIRATORY DI SEASE? N Are you being treated for HEART DISEASE? N Have you ever worn contact lenses? N Are you being treated for HIGH CHOLESTRO L? N Are you being treated for HYPERTENSION? N Are you being treated for PROSTATE PROBL EMS? N Have you ever been treated for ulcers or mcc eye infections? N Have you ever been treated for Shingles on or near your eyes or face? N Have you had previous injections for ret inal problems? N Have you ever had eye surger y of any kind before (including corrective laser surgery)? N Have you ever been treated for lazy ey e? N Have you had or have you ever been treat ed for glaucoma? N Are you being treated for DIABETES ? N Gynecological HistoryNo gynecological history recorded. Obstetrics History GPAL:G 0 P 0 0 0 0 Past Encounters Encounter ID Performer Location Encounter Start Date Encounter Closed Date Diagnosis/Indication Diagnosis SNOMED-CT Code Diagnosis ICD10 Code Diagnosis Note [id number] Gabriele Oscar MD [address] [address] 08/21/2018 14:03:06 08/21/2018 15:32:00 Cortical senile cataract 71418487 H25.013 Posterior vitreous detachment 735778869 H43.813 Epiretinal membrane 3676 32951 H35.371 Blepharitis 95653922 H01 .001 H01.002 H01.004 H01.005 Hypermetropia 94719568 H 52.03 Health Concerns Section Related Observation LastModified by Organization Detai ls LastModified Time None Recorded Concern Status LastModified by Organization Details LastModified Time None Recorded Advance Directives Directive None Recorded Payers Encounter Date Sequence Insurance Name Policy Number Policy Price Covered Member ID Price Member ID Guarantor Name 08/21/2018 1 [place]ICARE [place]: [employer] Laure Burrows [id number] Laure Burrows 08/21/2018 2 [place] [facility] Laure Burrows [id number] Laure Adkinsraissa Notes Date Note Type Note Provider Name and Address Organization Details Recorded Time 08/21/2018 text/html Blurred VisionReported bypatient.Context:no ticed a change in vision Location:bilateral (eyes) Modifying factors:blurred vision with glasses;difficulty readingNotes:family hx of glaucoma and amd Scribed to CR by KATYA Oscar MD [address] [place] [address], [place], [address], [facility] 08/21/2018 15:55:55 OBGyn Episode No OBEpisode recorded.
== END 2024-08-12 08:29 | disposition home or self-care (01) ==
LOC: HO.MAMMO 08:28
PROVIDERS: PCP Internal Medicine; Visit Provider Internal Medicine
DX: N63.24 Unspecified lump in the left breast, lower inner quadrant (principal)
CPT/HCPCS: 76642; 77062; 77066

== ENCOUNTER → 2024-08-12 08:30 | Outpatient (BNV) | payer MEDICARE, MEDICAID, SELFPAY | PROVIDERS: PCP Internal Medicine; Visit Provider Internal Medicine | DX: N63.24 Unspecified lump in the left breast, lower inner quadrant (principal) | CPT/HCPCS: 76642; 77066; G0279 ==

== ENCOUNTER 2024-09-24 14:05 | Outpatient (AMB) | payer MEDICARE, MEDICAID, SELFPAY ==
[2024-09-24 14:02] VITALS: BP 118/70; PULSE 98; TEMP 36.9; O2SAT 98; BMI 17.3
--- NOTE | 2024-09-24 14:02 | A.OFFPC_ITS ---
Vital Signs 09/24/24 14:02 Height 5 ft 5 in Weight 104 lb BMI 17.3 BP 118/70 Blood Pressure Location Lt brachial Position Sitting Pulse 98 Pulse Source Pulse Oximeter Temp 98.5 F Temp Source Axillary Pulse Oximetry (%) 98 Oxygen Delivery Method Room Air Intake Visit Reasons: Routine - see comments Director Of Coding Required: No Accompanied by: Sister Allergies shellfish derived [SHELLFISH DERIVED] Allergy (Intermediate, Verified 09/24/24 14:43) SWELLING hazelnut Allergy (Unknown, Verified 09/24/24 14:43) Abdominal Pain pecans Allergy (Unknown, Uncoded 09/24/24 14:43) Abdominal Pain walnuts Allergy (Unknown, Uncoded 09/24/24 14:43) Abdominal Pain Medication List - Last Reconciled 09/24/24 by Kurt Rossi MD No Known Home Meds Tobacco use date assessed: 09/24/24 Fall risk assessment: No Falls in past year Last assessed Fall Risk: 09/24/24 Dental Screening Dental Screen Date: 09/24/24 Did you have a dental visit in the last 12 months?: No Did you have a dental problem in the last 6 months where you did not have access to dental care?: No [facility] Medical History (Updated 09/24/24 @ 14:46 by Kurt Rossi MD) Nail dystrophy Achalasia, esophageal Anxiety Stasis edema of both lower extremities Pulmonary fibrosis Patient denies medical problems Family History (Updated 09/24/24 @ 14:13 by Joann Diallo MA) Mother No problems noted. Father No problems noted. Social History Housing: House Patient Tobacco Use Status: Never used Tobacco e-Cigarette/Vaping Use: Never Used service: No Current occupational status: retired Cognitive needs: No Hearing needs: No Vision needs: No Questionnaire PHQ-9 Over the last 2 weeks, how often have you been bothered by any of the following problems? 1. Little interest or pleasure in doing things: not at all 2. Feeling down, depressed, or hopeless: not at all 3. Trouble falling or staying asleep, or sleeping too much: not at all 4. Feeling tired or having little energy: not at all 5. Poor appetite or overeating: not at all 6. Feeling bad about yourself - or that you are a failure or have let yourself o r your family down: not at all 7. Trouble concentrating on things, such as reading the newspaper or watching television: not at all 8. Moving or speaking so slowly that other people could have noticed. Or the opposite - being so fidgety or restless that you have been moving around a lot more than usual: not at all 9. Thoughts that you would be better off or of hurting yourself in some way: not at all Total score: 0 Source: Developed by Drs. Gabriele Lawler, Yanira Wan, Goran Valle and colleagues, with an educational aashish from [employer]. Thrive Questionnaire Date Thrive assessed: 09/24/24 I am a: Patient Within the past 12 months, did the food you bought not last and you didn't have the money to get more?: Never true Within the past 12 months, did you worry whether your food would run out before you got money to buy more?: Never true Do you have trouble paying for medicines?: No Do you have trouble getting transportation to medical appointments?: No Do you have trouble paying your heating and electricity bill?: No Do you have trouble taking care of your child, family member or friend?: No Do you have trouble with day-to-day activities such as bathing, preparing meals, shopping, managing finances, etc.?: No Are you currently unemployed and looking for a job?: No Are you interested in more education?: No THRIVE Score: 0 AUDIT C Alcohol Use Questionnaire (AUDIT-C) 1. How often do you have a drink containing alcohol?: Never 3. How often do you have six or more drinks on one occasion?: Never Total Score: 0 AGNIESZKA-7 AMB Questionnaire AGNIESZKA-7 Date AGNIESZKA - 7 assessed: 09/24/24 Feeling nervous, anxious, or on edge: 0 = Not at all Not being able to stop or control worryin = Not at all Worrying too much about different things: 0 = Not at all Trouble relaxin = Not at all Being so restless that it is hard to sit still: 0 = Not at all Becoming easily annoyed or irritable: 0 = Not at all Feeling afraid as if something awful might happen: 0 = Not at all Total AGNIESZKA-7 score (0-4 normal; 5-9 mild; 10-14 moderate; 15-21 severe): 0 Source: Developed by Drs. Gabriele Lawler, Yanira Wan, Goran Valle and colleagues, with an educational aashish from [employer]. Physical exam (Primary Care) Vital Signs: Last Vital Signs Temp 98.5 F 09/24/24 14:02 Pulse 98 09/24/24 14:02 BP 118/70 09/24/24 14:02 Pulse Ox 98 09/24/24 14:02 Oxygen Delivery Method Room Air 09/24/24 14:02 BMI result Body Mass Index 17.3 Tobacco/Smoking Status: Tobacco use Status Tobacco use date assessed 09/24/24 09/24/24 14:04 Patient Tobacco Use Status Never used Tobacco 09/24/24 14:04 e-Cigarette/Vaping Use Never Used 09/24/24 14:04 PHQ-9: PHQ-9 Score PHQ-9: Total score 0 09/24/24 14:04 Thrive Assessment: Date of Thrive Assessment Date Thrive assessed 09/24/24 09/24/24 14:04 Coding Level of Care Code New Pt Level 4 (33151) Complex EM visit Add On G2211 Diagnoses Anxiety F41.9 Pulmonary fibrosis J84.10 Nail dystrophy L60.3 Assessment & Plan Assessment & Plan (1) Anxiety: Comment: She just has an Anxious personality , but is very pleasant . Code(s): F41.9 - Anxiety disorder, unspecified Category: Medical Plan: Condition is stable on no medications. (2) Pulmonary fibrosis: Comment: Localized fibrotic changes most predominantly in right lung apical area, And also in right lung base. ETIOLOGY :Possible recurrent infections in younger age, and possible micro aspirations due to achalasia of the esophagus. The CT scan has shown dilated esophagus , suggesting possible achalasia . Clinically she is not symptomatic , except for mild intermittent cough. Code(s): J84.10 - Pulmonary fibrosis, unspecified Category: Medical Plan: Condition is stable (3) Nail dystrophy: Code(s): L60.3 - Nail dystrophy Category: Medical Plan: Podiatry consult given to get the nails clipped Plan History of Present Illness The patient is a 74-year-old female presenting for a general check-up and health maintenance. 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 The patient reports stable vision and is able to see with both eyes. She inquires about care for thick toenails, presenting her concern over difficulty trimming them and asking for recommendations on suitable nail clippers. Her family history notes the presence of cancer, affecting multip le organs in her father, though not colon cancer specifically. She is due for a colorectal cancer screening and opts for the non-invasive Cologuard test given the absence of immediate symptoms or notable family predisposition. Social History - Lives independently at her parents' house. 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 - Does not smoke or use tobacco products. - Engages in physical activities such as walking and biking; used to hike regularly. - Manages personal finances independently. - Drives occasionally but not frequently, as she possesses an older vehicle. - Receives ocular injections for wet macular degeneration at [facility]. Review of Systems - Eyes: Reports ongoing treatment for wet macular degeneration in the right eye. - Skin: Denies any new skin changes, reports issues with thick toenails. - Genitourinary: Denies any trouble with urination or urinary leakage. Physical Exam General: Cooperative and healthy appearing Nutritional Appearance: Well nourished Orientation/consciousness: Patient oriented x3 Limitations: No limitations Head: Normal to inspection General: Appearance normal, both eyes and all related structures Neck: Normal visual inspection Chest: Normal palpation of entire chest wall Respiratory: Breathe in and out without difficulty. ormal respiratory effort Neurology: Patient oriented x3, no issues with driving or carrying groceries, manages own finances, no trouble urinating or leaking of urine. Results - Labs: Routine blood work including blood glucose, kidney function, liver function, and anemia screening (results pending). - Tests: Cologuard test ordered for colon cancer screening. Plan 1. Wet Macular Degeneration, Right Eye - Maintain regular injections with [facility]. 2. Thick Toenails - Plan for a spiritual counselor visit for toenail management and device recommendations. 3. Family History Of Cancer Non-Colon - Proceed with Cologuard testing for colorectal screening. Discussion Notes During the visit, I discussed with the patient her current health status and the need for a general check-up. We focused on her primary concerns of wet macular degeneration of the right eye and managing her thick toenails. She is currently receiving appropriate treatment for her eye condition. The necessity of a podiatric referral was covered to address toenail care. Given her lack of family history with colon cancer, we reviewed screening options and consented to proceed with a Cologuard test. Routine bloodwork was ordered to comprehensively assess her health status. The importance of informing someone when hiking or walking alone for safety through mobile tracking was also discussed. I affirmed the follow-up in six months for further evaluation. Patient Instructions - Continue eye treatment at [facility] as scheduled. - Follow up with a spiritual counselor for toenail care. - Complete the Cologuard test as ordered. - Schedule bloodwork at the lab across the street today. - Notify someone if hiking or walking alone. - Return for the next check-up in six months. Orders: Orders Complete Blood Count no Diff Today F41.9 - Anxiety disorder, unspecified, J84.10 - Pulmonary fibrosis, unspecified Liver Panel Today F41.9 - Anxiety disorder, unspecified, J84.10 - Pulmonary fibrosis, unspecified Basic Metabolic Panel Today F41.9 - Anxiety disorder, unspecified, J84.10 - Pulmonary fibrosis, unspecified Lipid Panel Today F41.9 - Anxiety disorder, unspecified, J84.10 - Pulmonary fibrosis, unspecified Thyroid Stimulating Hormone Today F41.9 - Anxiety disorder, unspecified, J84.10 - Pulmonary fibrosis, unspecified UA and rflx microscopic Today F41.9 - Anxiety disorder, unspecified, J84.10 - Pulmonary fibrosis, unspecified
--- OUTSIDE RECORDS SUMMARY | 2024-09-24 15:19 | XMS_ITS | Data Portability ---
Author Organization [facility] Address [address] [place] [address] Assessment No assessment recorded. Plan of Treatment [...] Recorded Time No current problems or disability 346560708 Active [facility] 9 14:48:49 Epiretinal membrane 380214112 Active 2018 [facility] 9 15:21:16 Posterior vitreous detachment 390440204 Active 2018 [place] [facility] 9 15:21:25 Cortical senile cataract 41685982 Active 2018 [place] [facility] 9 15:21:27 Blepharitis 00052417 Active 2018 [place] [facility] 9 15:21:37 Hypermetropia 33158162 Active 2018 [place] [facility] 9 15:23:49 Problem Notes None recorded. Medical Equipment None Reported. Allergies Allergen ID Allergen Name Allergen Category Reaction Reaction Severity Criticality Documentation Date Start Date Code Code System Note Provider Name and Address Organization Details Recorded Time 02570 shellfish derived food,medi cation Not available Not available Not available 08/21/2018 91960 UNK [place] [facility] 9 14:47:55 Medications Name Sig Start [...] LastModified Time Tobacco Smoking Status Never Smoker [place] [facility] 08/21/2018 14:52:57 What Is Your Level [...] you ever been treated for ulcers or alf eye infections? N Have you ever been [...] SNOMED-CT Code Diagnosis ICD10 Code Diagnosis Note [id number] Gabriele Ocsar MD [address] [address] 08/21/2018 14:03:06 08/21/2018 15:32:00 Cortical senile cataract 78694705 H25.013 Posterior vitreous detachment 968539847 H43.813 Epiretinal membrane 3676 50062 H35.371 Blepharitis 27578893 H01 .001 H01.002 H01.004 H01.005 Hypermetropia 16840492 H 52.03 Health Concerns Section Related Observation LastModified by Organization Detai ls LastModified Time None Recorded Concern Status LastModified by Organization Details LastModified Time None Recorded Advance Directives Directive None Recorded Payers Insurance Date Sequence Insurance Name Policy Number Policy Price Covered Member ID Price Member ID Guarantor Name 08/21/2018 1 [place] B[place]: [employer] Laure Burrows [id number] Laure Burrows 08/19/2018 2 [place]: [facility] Laure Burrows [id number] Laure Adkinsraissa Notes Date Note Type Note Provider Name and Address Organization Details Recorded Time 08/21/2018 text/html Blurred VisionReported bypatient.Context:no ticed a change in vision Location:bilateral (eyes) Modifying factors:blurred vision with glasses;difficulty readingNotes:family hx of glaucoma and amd Scribed to CR by KATYA sOcar MD [address] [place] [address] 5, [place], [address], [facility] 08/21/2018 15:55:55 OBGyn Episode No OBEpisode recorded.
== END 2024-09-24 14:44 | disposition home or self-care (01) ==
LOC: HO.HMCHD 14:05
PROVIDERS: PCP Internal Medicine; Visit Provider Internal Medicine
DX: F41.9 Anxiety disorder, unspecified (principal); J84.10 Pulmonary fibrosis, unspecified; L60.3 Nail dystrophy

== ENCOUNTER → 2024-09-24 14:05 | Outpatient (BNVA) | payer MEDICARE, MEDICAID, SELFPAY | PROVIDERS: PCP Internal Medicine; Visit Provider Internal Medicine | DX: F41.9 Anxiety disorder, unspecified (principal); J84.10 Pulmonary fibrosis, unspecified; L60.3 Nail dystrophy | CPT/HCPCS: 99202 ==

== ENCOUNTER 2024-09-27 07:32 | Outpatient (REF) | payer MEDICARE, SELFPAY ==
[2024-09-27 09:10] LABS: Hematocrit 43.1 % (37.0-47.0); Hemoglobin 13.7 g/dl (12.0-16.0); Mean Corpuscular HGB Conc 31.8 g/dl (31.0-35.0); Mean Corpuscular Volume 91.1 fL (80.0-98.0); Mean Platelet Volume 10.3 fL (9.4-12.3); Platelet Count 199 X10*3/uL (160-400); Red Blood Count 4.73 X10*6/uL (4.20-5.50); Red Cell Distribution Width 13.2 % (11.0-16.0); White Blood Count 5.6 X10*3/uL (4.8-10.8)
[2024-09-27 09:15] LABS: Appearance Urine Clear; Color Urine Dark Yellow; Glucose Urine UA Negative (Negative); Leukocyte Esterase Urine Negative (Negative); Nitrite Urine Negative (Negative); Specific Gravity - Urine 1.025 (1.005-1.025); UMIC TRIGGER UA YES; Urine Blood Negative (Negative); Urine Ketones Trace mg/dL (Negative); Urine Protein 30 (1+) mg/dL (Neg-Trace)
[2024-09-27 09:20] LABS: Bacteria Urine None Seen (None Seen); RBC Urine 0-2 /HPF (0-2); Squamous Epithelial Cell Urine 0-2 /HPF (0-2); WBC Urine 0-5 /HPF (0-5)
[2024-09-27 10:01] LABS: Alanine Aminotransferase 15 U/L (0-31); Albumin Level 4.2 g/dL (3.5-5.0); Alkaline Phosphatase 55 U/L (39-117); Anion Gap 14 (12-20); Aspartate Amino Transferase 24 U/L (5-31); Bilirubin Direct 0.2 mg/dL (0.0-0.5); Bilirubin Total 0.6 mg/dL (0.0-1.0); Blood Urea Nitrogen 13 mg/dL (9-16); Calcium 9.2 mg/dL (8.4-10.2); Carbon Dioxide 26 mmol/L (22-29); Chloride 107 mmol/L (96-108); Cholesterol 144 mg/dL (<200); Estimated Glomerular Filt Rate > 60; Glucose Random 91 mg/dL (60-115); HDL Cholesterol 52 mg/dL (>40); LDL Cholesterol Calculated 80 mg/dL (<100); Sodium 143 mmol/L (135-145); Total Protein 7.3 g/dL (6.5-8.0); Triglycerides 63 mg/dL (<150)
== END 2024-09-27 07:33 | disposition home or self-care (01) ==
LOC: HO.LAB 07:32
PROVIDERS: PCP Internal Medicine; Visit Provider Internal Medicine
DX: F41.9 Anxiety disorder, unspecified (principal); J84.10 Pulmonary fibrosis, unspecified; Z13.6 Encounter for screening for cardiovascular disorders
CPT/HCPCS: 36415; 80048; 80061; 80076; 81001; 81003; 84443; 85027

== ENCOUNTER 2024-11-27 15:01 | Outpatient (AMB) | payer MEDICARE, MEDICAID, SELFPAY ==
--- OUTSIDE RECORDS SUMMARY | 2024-11-27 15:04 | XMS_ITS | Data Portability ---
Author Organization [facility] [place] Address [address] [place] [address] Assessment No assessment recorded. Plan of Treatment [...] Modified By Organization Details Last Modified Time 08/21/2018 374105 farsightedness (hyperopia): care instructions Not available 08/21/2018 [...] near vision with correction and Amsler grid. . . Call if any changes in vision noted. Not available 08/21/2018 15:26:31 Reason for Referral None Reported. Problems Name Problem SNOMED Code Status Onset Date Resolution Date Notes Provider Name and Address Organization Details Recorded Time No current problems or disability 491791869 Active Cheryl harrington [facility] 9 14:48:49 Epiretinal membrane 199764191 Active 2018 Cheryl harrington [place] [facility] 9 15:21:16 Posterior vitreous detachment 336259388 Active 2018 [place] [facility] 9 15:21:25 Cortical senile cataract 39567758 Active 2018 [place] [facility] 9 15:21:27 Blepharitis 94186297 Active 2018 [place] [facility] 9 15:21:37 Hypermetropia 64826396 Active 2018 [place] [facility] 9 15:23:49 Problem Notes None recorded. Medical Equipment None Reported. Allergies Allergen ID Allergen Name Allergen Category Reaction Reaction Severity Criticality Documentation Date Start Date Code Code System Note Provider Name and Address Organization Details Recorded Time 60566 shellfish derived food,medi cation Not available Not available Not available 08/21/2018 99897 UNK [place] [facility] [...] LastModified Time Tobacco Smoking Status Never Smoker [place] [facility] 08/21/2018 14:52:57 What Was The Date Of Your Most Recent Tobacco Screening? 08/21/2018 Information n ot available 12/12/2018 Sex: Unknown Functional Status Question Answer Note LastModified by Organization D etails LastModified Time What is your level of alcohol consumption? None Information not available 08/21/2018 Mental Status None recorded. Family History Relationship [...] you ever been treated for ulcers or retirement eye infections? N Have you ever been [...] SNOMED-CT Code Diagnosis ICD10 Code Diagnosis Note [id number] Gabriele Oscar MD [address] [address] 08/21/2018 14:03:06 08/21/2018 15:32:00 Cortical senile cataract 47219708 H25.013 Posterior vitreous detachment 186888829 H43.813 Epiretinal membrane 3676 92992 H35.371 Blepharitis 34297968 H01 .001 H01.002 H01.004 H01.005 Hypermetropia 87841568 H 52.03 Health Concerns Section Related Observation LastModified by Organization Detai ls LastModified Time None Recorded Concern Status LastModified by Organization Details LastModified Time None Recorded Advance Directives Directive None Recorded Payers Insurance Date Sequence Insurance Name Policy Number Policy Price Covered Member ID Price Member ID Guarantor Name 08/21/2018 1 [place] [employer] Laure Burrows [id number] Laure Burrows 08/19/2018 2 [place] [facility] Laure Burrows [id number] Laure Burrows Notes Date Note Type Note Provider Name and Address Organization Details Recorded Time 08/21/2018 text/html Blurred VisionReported bypatient.Context:no ticed a change in vision Location:bilateral (eyes) Modifying factors:blurred vision with glasses;difficulty readingNotes:family hx of glaucoma and amd Scribed to CR by KATYA Oscar MD [address] [place] [address],[address], [place], [address], [facility] 08/21/2018 15:55:55 OBGyn Episode No OBEpisode recorded.
--- OUTSIDE RECORDS SUMMARY | 2024-11-27 15:04 | XMS_ITS | Clinical Summary ---
Author Organization [facility] Address [address] [place] [address] Phone Care Team Providers Care Portfolio Director Name Role Phone Kurt Rossi MD Primary Care Provider [phone] Social History Tobacco Use Types Packs/Day Years Used Date Smoking Tobacco: Never Assessed Comments Unknown Sex and Gender Information Value Date Recorded Sex Assigned at Not on file Legal Sex Female 8:26 PM EST Gender Identity Not on file Sexual Orientation Not on file Plan of Treatment Upcoming Encounters Date Type Department Care Team ([facility] st Contact Info) Description 12/15/2024 9:45 AM EDT Office Visit Orthopedic Surgery - [place] [address] [address] Robert Castillo, DPM [address] [address] Health Maintenance Due Date Last Done Comments Breast Cancer Screening 1950 DTaP,Tdap,and Td Vaccines (1 - Tdap) 09/23/1970 Pneumococcal Vaccine: 50+ Ye ars (1 of 1 - PCV) 09/23/2001 Zoster Vaccines (1 of 2) 09/23/2001 COVID-19 Vaccine ( - 2023-2 5 season) 2024 Colorectal Cancer Screening: Colonoscopy 09/30/2024 Depression Screening 09/30/2024 Falls Risk Assessment 09/30/2024 Hepatitis C Screening 09/30/2024 Medicare Annual Wellness Visit 09/30/2024 Osteoporosis Screening (Bone Density Screening) 09/30/2024 Social Influencers of Health Screening 09/30/2024 Influenza Vaccine (#1) 2025 RSV Immunization Adult Patie nts (1 - 1-dose 75+ series) 09/23/2026 HIB Vaccines Aged Out No longer eligi ble based on patient's age to complete this topic HPV Vaccines Aged Out No longer eligi ble based on patient's age to complete this topic Hepatitis A Vaccines Aged Out No long er eligible based on patient's age to complete this topic Hepatitis B Vaccines Aged Out No long er eligible based on patient's age to complete this topic IPV Vaccines Aged Out No longer eligi ble based on patient's age to complete this topic MMR Vaccines Aged Out No longer eligi ble based on patient's age to complete this topic Meningococcal ACWY Vaccine Aged Out N o longer eligible based on patient's age to complete this topic Meningococcal B Vaccine Aged Out No l onger eligible based on patient's age to complete this topic RSV Immunization Patients Un noah 20 months Aged Out No longer eligible b ased on patient's age to complete this topic Varicella Vaccines Aged Out No longer eligible based on patient's age to complete this topic Insurance MEDICARE MEDICAID - [place] Care Teams Portfolio Director Relationship Specialty Start Date End Date Kurt Rossi MD [address] [place] [address] PCP - General Internal Medicine 09/30/24
[2024-11-27 15:21] VITALS: BP 110/60; PULSE 76; O2SAT 99; BMI 16.8
--- NOTE | 2024-11-27 15:21 | MHC.OFFVIS ---
Vital Signs 11/27/24 15:21 Height 5 ft 5 in Weight 101 lb BMI 16.8 BP 110/60 Blood Pressure Location Lt brachial Position Sitting Pulse 76 Pulse Source Pulse Oximeter Pulse Oximetry (%) 99 Oxygen Delivery Method Room Air Intake Visit Reasons: COPD Intake Note: pt is here for follow up and says she is stable, Criminal Intelligence Specialist Required: No Allergies shellfish derived (SHELLFISH DERIVED) Allergy (Intermediate, Verified 11/27/24 15:47) SWELLING hazelnut Allergy (Unknown, Verified 11/27/24 15:47) Abdominal Pain pecans Allergy (Unknown, Uncoded 11/27/24 15:47) Abdominal Pain walnuts Allergy (Unknown, Uncoded 11/27/24 15:47) Abdominal Pain Medication List - Last Reconciled 11/27/24 by Brigida Berry MD No Known Home Meds Do you need a note to return to daycare/school/sports/work: No HPI HPI COPD: Details: This 74 years old female, is accompanied by her sister who lives in [place]. She say is that she is doing fine and has only occasional mild cough. She has history of cough after eating, but now as long as she takes her time and sip some liquids along with the solid food, she is doing okay . 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 She comes to see me once a year just to make sure that her lungs are okay. * IT SHOULD BE NOTED THAT ON HER 1ST VISIT PULMONARY FUNCTION TEST FAILED BECAUSE SHE COULD NOT PERFORM ADEQUATE MANEUVERS IN SPITE OF REPEATED INSTRUCTIONS. Clinically she does have very mild degree of chronic obstructive pulmonary disease but has not required to use any inhalers. [facility] Medical History Nail dystrophy Achalasia, esophageal Anxiety Stasis edema of both lower extremities Pulmonary fibrosis Patient denies medical problems Family History Mother No problems noted. Father No problems noted. Social History Housing: House Patient Tobacco Use Status: Never used Tobacco e-Cigarette/Vaping Use: Never Used service: No Current occupational status: retired Cognitive needs: No Hearing needs: No Vision needs: No Review of Systems Const All systems reviewed & are unremarkable except as noted in HPI and below Eyes Reports no additional complaints ENT Reports no additional complaints and Reports dysphagia (Occasional episodes of choking on solid food) Card Denies chest pain, Denies irregular heart rhythm and Reports dyspnea on exertion (mild) Resp Reports as per HPI and Reports dyspnea on exertion (mild) GI Reports dysphagia (Occasional episodes of choking on solid food) Reports no additional complaints Musc Reports no additional complaints Skin/Breast Reports system reviewed and no additional complaints, except as documented Neuro Reports no additional complaints Psych Reports anxiety Physical Exam Vital Signs: Last Vital Signs Pulse 76 11/27/24 15:21 BP 110/60 11/27/24 15:21 Pulse Ox 99 11/27/24 15:21 Oxygen Delivery Method Room Air 11/27/24 15:21 BMI result Body Mass Index 16.8 Const General: comfortable, no acute distress, alert and awake Orientation/consciousness: patient oriented x3 HEENT Head: Yes normal to inspection General nose exam: No nasal polyps present and No nasal discharge present Face and sinus: Yes sinuses nontender Mouth: oropharynx normal Throat: Yes posterior oropharynx normal Eyes General: appearance normal, both eyes and all related structures Neck Neck: Yes normal visual inspection, Yes no lymphadenopathy, Yes trachea midline and Yes no JVD Thyroid: Thyroid normal Chest Chest palpation & inspection: normal inspection of the chest, normal palpation of entire chest wall and no tenderness Resp Other: Percussion note is hyper-resonant,. Breath sounds are distant with slight prolongation of the expiratory phase. No wheezes or crepitations are heard. Cardio Palpation: normal PMI Rate: regular rate Rhythm: regular rhythm Heart sounds: no gallops and no murmurs GI Palpation (GI): Soft to palpation, nontender, No hepatosplenomegaly present and no masses Auscultation: normal bowel sounds Back/Spine/Pelvis Thoracic/Lumbar Spine: thoracic and lumbar spine normal to inspection Skin General skin exam: no rashes or lesions noted Neuro General: patient oriented x3 and no focal motor deficits Cranial nerves: Yes CN's II-XII intact bilaterally Extrem General: Yes normal to inspection, Yes no calf tenderness and Yes edema (mild of legs ,stasis type ) Psych Appearance: grossly normal Speech and movement: Normal speech and movement present Affect: Anxious affect present Assessment & Plan Assessment & Plan (1) Pulmonary fibrosis: Comment: Localized fibrotic changes most predominantly in right lung apical area, And also in right lung base. ETIOLOGY :Possible recurrent infections in younger age, and possible micro aspirations due to achalasia of the esophagus. The CT scan has shown dilated esophagus , suggesting possible achalasia . Clinically she is not symptomatic , except for mild intermittent cough. Code(s): J84.10 - Pulmonary fibrosis, unspecified Category: Medical Plan: Once again I explained the findings of CT scan to her and to her sister. These are chronic nonspecific changes and there is no need to treat actively. (2) Anxiety: Comment: She just has an Anxious personality , but is very pleasant . Code(s): F41.9 - Anxiety disorder, unspecified Category: Medical Plan: Had a good talk and I try to reassure her that her respiratory status is okay . (3) Achalasia, esophageal: Comment: Patient has history of choking on foods off and on in the past but not now . Radiologic evidence of dilatation of the esophagus, suggesting achalasia. She has had no GI evaluation . Code(s): K22.0 - Achalasia of cardia Category: Medical Plan: Advised to be careful when eating. Take your time, , Chew well , and may use sips of liquids when eating solid food. Coding Level of Care Code Est Pt Level 3 (63232) Diagnoses Pulmonary fibrosis J84.10 Anxiety F41.9 Achalasia, esophageal K22.0
== END 2024-11-27 16:23 | disposition home or self-care (01) ==
LOC: HO.HPS 15:02
PROVIDERS: PCP Internal Medicine; Visit Provider Internal Medicine
DX: J84.10 Pulmonary fibrosis, unspecified (principal); F41.9 Anxiety disorder, unspecified; K22.0 Achalasia of cardia
CPT/HCPCS: 99213

== ENCOUNTER → 2024-11-27 15:01 | Outpatient (BNVA) | payer MEDICARE, MEDICAID, SELFPAY | PROVIDERS: PCP Internal Medicine; Visit Provider Internal Medicine | DX: K22.0 Achalasia of cardia (principal); J84.10 Pulmonary fibrosis, unspecified; F41.9 Anxiety disorder, unspecified | CPT/HCPCS: 99212 ==